=== PATIENT | female | born 1965 | race Caucasian/White ===

== ENCOUNTER 2019-01-23 09:59 | Day surgery (SDC) | payer BC, OTHER ==
[~2019-01-23] VITALS: Ht 167.6 cm; Wt 58.1 kg
[2019-01-23] VITALS (7 sets, daily range): BP systolic 107–143; BP diastolic 74–93; PULSE 71–84; RESP 14–20; Ht 167.6 cm; Wt 58.1 kg
[~2019-01-23 09:59] MED LIST: ALBU18HF INH; CYCL5TAB PO; HYDR-3609 ORAL; METF-849 ORAL; MONT10TA24 ORAL; TRAM50TA2 ORAL
[2019-01-23] MEDS ORDERED: SOD CHLORIDE 0.9% 1,000 ML IV SCH (11:30)
[2019-01-23] MEDS ORDERED: CEFAZOLIN 1 GM/50 ML (PMX) 50 ML IVPB ONE (12:00)
--- NOTE | 2019-01-23 13:09 | HPN ---
Date/Time of Note Date/Time of Note DATE: 01/23/19 TIME: 13:08 Interval H&P Admission Note Pt. seen H&P reviewed: No system changes CHRISTINE BOWMAN MD Jan 23, 2019 13:09
--- NOTE | 2019-01-23 13:11 | OPR ---
Date/Time of Note Date/Time of Note DATE: 01/23/19 TIME: 13:09 Operative Report Preoperative Diagnosis spinal stenosis lumbar spine Postoperative Diagnosis same Operation/Procedure Performed lumbar epidural steroid injection Surgeon see signature line Roast Master none Anesthesia Type: MAC Estimated Blood Loss: none Transfusion none Specimen none Grafts/Implants none Tubes/Drains none Complications none Pt Condition Post Procedure: stable Procedure Description lumbar epidural steroid injection CHRISTINE BOWMAN MD Jan 23, 2019 13:11
--- NOTE | 2019-01-23 13:12 | PREAC ---
Date/Time of Note Date/Time of Note DATE: 01/23/19 TIME: 13:10 Anesthesia Eval and Record Evaluation Time Pre-Procedure Interview DATE: 01/23/19 TIME: 13:10 Age 54 Sex female NPO: 8 hrs Preoperative diagnosis spondyls w/o myelopathy Planned procedure LUMBAR EPIDURAL INJECTION Past Medical History Past Medical History: Includes Endo: Diabetes Surgery & Anesthesia Issues No known issue Meds Anticoagulation: No Beta Ginny within 24 hr: No Reason Beta Ginny not given: Pt. not on B-Ginny Reported Medications Cyclobenzaprine Hcl* (Cyclobenzaprine Hcl*) 5 Mg Tablet, 5 MG PO Q8H PRN for MUSCLE SPASMS, #60 TAB 01/23/19 Albuterol Sulfate* (Ventolin HFA*) 18 Gm Hfa.aer.ad, 2 PUFF INH Q6 PRN for SHORTNESS OF BREATH 01/23/19 Metformin* (Glucophage*) 500 Mg Tab, 1 TAB ORAL BID 01/23/19 Tramadol HCl (Tramadol HCl) 50 Mg Tablet, 1 TAB ORAL BID PRN for PAIN LEVEL 7-10 01/23/19 Montelukast Sodium* (Montelukast Sodium*) 10 Mg Tablet, 1 TAB ORAL DAILY 01/23/19 Hydrocodone/Acetaminophen (Hydrocodone-Acetamin 10-325 mg) 1 Each Tablet, 1 TAB ORAL BID PRN for PAIN LEVEL 6-10 01/23/19 Current Medications Sodium Chloride 1,000 ml @ 0 mls/hr Q0M IV ; Start 01/23/19 at 11:30 Meds reviewed: Yes Allergies Coded Allergies: No Known Allergy (Unverified , 01/23/19) Allergies Reviewed: Yes Labs/Studies Labs Reviewed: Other (NA) test: N/A Pre-procedure Exam Last vitals Vital Signs Date Temp Pulse Resp B/P (MAP) Pulse Ox O2 O2 Flow FiO2 Time Delivery Rate 01/23/19 97.1 84 16 143/93 99 Room Air 11:10 (110) Airway: Adequate mouth opening Mallampati: Mallampati II Teeth: Normal Lung: Normal Heart: Normal ASA Physical Status ASA physical status: 2 Emergency: None Planned Anesthetic General/MAC: MAC Pre-operative Attestations Prior to commencing anesthesia and surgery, the patient was re-evaluated, there was verification of: *The patient's identity *The results of appropriate recent lab work and preoperative vital signs *The above evaluation not changing prior to induction *Anesthetic plan, risk benefits, alternative and complications discussed with patient/family; questions answered; patient/family understands, accepts and wishes to proceed. MONA MORILLO Jan 23, 2019 13:12
[2019-01-23] MEDS ORDERED: SODIUM CL BACTERIOSTATIC 30 ML INJ ONE (13:14)
[2019-01-23] MEDS ORDERED: IOHEXOL 300MG/ML 30 ML BTL ONE (13:15)
[2019-01-23] MEDS ORDERED: METHYLPREDNISOLONE ACET 80 MG/ML 1 ML ONE (13:15)
[2019-01-23] MEDS ORDERED: PROPOFOL 200 MG INJ ONE (13:19)
[2019-01-23] MEDS ORDERED: FENTAnyl 50 MCG/ML VIAL ONE (13:19)
[2019-01-23] MEDS ORDERED: MIDAZOLAM 1 MG/ML 2 ML INJ ONE (13:19)
[2019-01-23] MEDS ORDERED: HYDROmorphONE 1 MG/5 ML IV SYRINGE IV PRN ×2 (13:30)
[2019-01-23] MEDS ORDERED: FENTAnyl 50 MCG/ML VIAL IV PRN ×2 (13:30)
[2019-01-23] MEDS ORDERED: ONDANSETRON 4 MG INJ IV PRN (13:30)
[2019-01-23] MEDS ORDERED: LABETALOL HCL 20MG INJ IV PRN (13:30)
[2019-01-23] MEDS ORDERED: hydrALAzine 20 MG INJ IV PRN (13:30)
[2019-01-23] MEDS ORDERED: METOCLOPRAMIDE 10 MG INJ IV PRN (13:30)
[2019-01-23] MEDS ORDERED: LIDOCAINE 1% (MPF) 30 ML INJ ONE (13:35)
--- NOTE | 2019-01-23 13:57 | PAC ---
Date/Time of Note Date/Time of Note DATE: 01/23/19 TIME: 13:57 Post-Anesthesia Notes Post-Anesthesia Note Last documented vital signs Vital Signs Date Temp Pulse Resp B/P (MAP) Pulse Ox O2 O2 Flow FiO2 Time Delivery Rate 01/23/19 97.1 84 16 143/93 99 Room Air 11:10 (110) Activity: WNL Respiratory function: WNL Cardiovascular function: WNL Mental status: Baseline Pain reasonably controlled: Yes Hydration appropriate: Yes Nausea/Vomiting absent: Yes MONA MORILLO Jan 23, 2019 13:57
--- NOTE | 2019-01-24 02:57 | OPR ---
DATE OF OPERATION: 01/23/2019 SURGEON: Annmarie Faulkner MD. ANESTHESIA: MAC. PREOPERATIVE DIAGNOSIS: Lumbar spondylosis stenosis . POSTOPERATIVE DIAGNOSIS: Lumbar spondylosis stenosis . PROCEDURE PERFORMED: 1. Lumbar epidural steroid injection. 2. Interpretation of intraoperative fluoroscopy x-ray. ESTIMATED BLOOD LOSS: None. PROCEDURE IN DETAIL: The patient was taken to the operating room and placed in decubitus position. Intravenous sedation provided by anesthesia. C-arm brought over the lumbar spine. Leg prepped with ChloraPrep. A 23 gauge 3-1/2-inch spinal needle was introduced using the loss of resistance techniqu e. No CSF or blood aspirated. 80 mg Depo-Medrol and 1 mL of 1% Xylocaine injected without complicat ion. The patient tolerated the procedure well. Anesthetic reversed and taken to the recovery room in stable condition. Dictated By: ANNMARIE DOMINGUEZ/TERRELL Conf#: [id number] DID#: [id number]
== END 2019-01-23 14:47 | disposition home or self-care (01) ==
LOC: SDS 09:59
PROVIDERS: ATTEND Specialist
DX: M48.061 Spinal stenosis, lumbar region without neurogenic claudication (principal); E11.9 Type 2 diabetes mellitus without complications; Z79.84 Long term (current) use of oral hypoglycemic drugs
CPT/HCPCS: 62323; 72100; 82962; J0690; J1040; J2250; J3010; Z7512; Z7610; Q9967

== ENCOUNTER 2019-02-24 11:34 | Day surgery (SDC) | payer OTHER ==
[~2019-02-24] VITALS: Ht 167.6 cm; Wt 57.6 kg
[~2019-02-24 11:34] MED LIST changes: +CEFAZOLIN 1 GM/50 ML (PMX) 50 ML IVPB ONE; +FER325 PO; +ZOLP10TA5 PO
[2019-02-24 13:03] VITALS: Ht 167.6 cm; Wt 57.6 kg
[2019-02-24 13:06] VITALS: BP 136/73; PULSE 68; RESP 16
[2019-02-24] MEDS ORDERED: LIDOCAINE 1% (MPF) 10 ML INJ ONE (14:59)
[2019-02-24] MEDS ORDERED: METHYLPREDNISOLONE ACET 80 MG/ML 1 ML ONE (14:59)
[2019-02-24] MEDS ORDERED: OXYCODONE/ACETAMINOPHEN (10/325) TAB PO ONE (15:00)
[2019-02-24] MEDS ORDERED: PROPOFOL 20 ML ONE (15:43)
[2019-02-24] MEDS ORDERED: FENTAnyl 50 MCG/ML VIAL ONE (15:43)
[2019-02-24 16:04] VITALS: BP 132/78; PULSE 71; RESP 19
[2019-02-24 16:09] VITALS: BP 141/91; PULSE 82; RESP 22
[2019-02-24 16:14] VITALS: BP 143/72; PULSE 72; RESP 21
[2019-02-24 16:19] VITALS: BP 122/82; PULSE 72; RESP 23
[2019-02-24 16:25] VITALS: BP 140/74; PULSE 74; RESP 16
[2019-02-24] MEDS ORDERED: EPHEDrine 25 MG/5 ML SYG IV PRN (16:30)
[2019-02-24] MEDS ORDERED: FENTAnyl 50 MCG/ML VIAL IV PRN ×3 (16:30)
[2019-02-24] MEDS ORDERED: ONDANSETRON 4 MG INJ IV PRN (16:30)
[2019-02-24] MEDS ORDERED: OXYCODONE/ACETAMINOPHEN (5/325) TAB PO PRN ×2 (16:30)
[2019-02-24] MEDS ORDERED: MIDAZOLAM 1 MG/ML 2 ML INJ IV PRN (16:30)
[2019-02-24] MEDS ORDERED: LABETALOL HCL 20MG INJ IV PRN (16:30)
[2019-02-24] MEDS ORDERED: DIPHENHYDRAMINE 50 MG INJ IV PRN (16:30)
[2019-02-24] MEDS ORDERED: hydrALAzine 20 MG INJ IV PRN (16:30)
[2019-02-24] MEDS ORDERED: MEPERIDINE 25 MG INJ IV PRN (16:30)
[2019-02-24] MEDS ORDERED: METOCLOPRAMIDE 10 MG INJ IV PRN (16:30)
== END 2019-02-24 16:50 | disposition home or self-care (01) ==
LOC: SDS 11:34
PROVIDERS: ATTEND Specialist
DX: M47.892 Other spondylosis, cervical region (principal); M50.20 Other cervical disc displacement, unspecified cervical region; M48.02 Spinal stenosis, cervical region; E11.9 Type 2 diabetes mellitus without complications; J45.909 Unspecified asthma, uncomplicated; Z79.84 Long term (current) use of oral hypoglycemic drugs
CPT/HCPCS: 62320; 72040; 82962; J0690; J1040; J2405; J3010; Z7512; Z7610